=== PATIENT | female | born 1985 | race Caucasian/White ===

== ENCOUNTER 2017-05-04 22:37 | Emergency (ER) | payer SELFPAY ==
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
[2017-05-05] MEDS ORDERED: TETANUS/DIPHTHERIA TOX-ADULT 0.5 ML SYR (>=7YO) IM ONE (00:54)
[2017-05-05] MEDS ORDERED: PROMETHAZINE HCL 25 MG TABLET PO ONE (00:54)
[2017-05-05] MEDS ORDERED: METRONIDAZOLE 500 MG TABLET PO ONE (00:54)
[2017-05-05] MEDS ORDERED: LEVONORGESTREL 1.5 MG TABLET (1 TAB/ER-USE) PO ONE (00:54)
[2017-05-05] MEDS ORDERED: LIDOCAINE 1% INJ-PF (10 MG/ML) 30 ML SDV INJ ONE (00:54)
[2017-05-05] MEDS ORDERED: CEFTRIAXONE INJ 250 MG VIAL IM ONE (00:54)
[2017-05-05] MEDS ORDERED: AZITHROMYCIN 250 MG TABLET PO ONE (00:54)
[2017-05-05 04:17] VITALS: BP 121/73
[2017-05-05 05:04] LABS: CHLAM PCR NOT DETECTED (NOT DETECT)
== END 2017-05-05 03:59 | disposition home or self-care (01) ==
LOC: ER 22:37
DX: T76.21XA Adult sexual abuse, suspected, initial encounter (principal)
CPT/HCPCS: 99285; 96372; 87210; 81025; 87491; 87591; A9270; J3490; J0696